=== PATIENT | female | born 1960 | race Caucasian/White ===

== ENCOUNTER 2020-03-17 23:10 | Emergency (ER) | payer MEDICARE, MEDICAID ==
[~2020-03-17] VITALS: Ht 165.1 cm; Wt 77.3 kg
[~2020-03-17 23:10] MED LIST: ACAM333T8 PO; ALEN70TA60 PO; BENZ1TAB7 PO; CLON-512 PO; FLUT1DIS7 IH; GABA-532 PO; HYDR-3964 PO; IBUP-1986 PO; LAMO100T PO; LAMO100T2 PO; LURA60TA PO; MIRT-116 PO; OLAN10TA19 PO; OMEP20CA15 PO; TIOT18CA7 IH; TRAM50TA2 PO; VILA40TA PO; ZOLP5TAB8 PO
[2020-03-17 23:12] VITALS: BP 119/77
--- NOTE | 2020-03-17 23:39 | NUR ---
PATIENT STATES HOME ADDRESS WHEN DISCHARGED WILL BE [facility]
== END 2020-03-18 01:38 | disposition home or self-care (01) ==
LOC: ER 23:10
DX: S09.90XA Unspecified injury of head, initial encounter (principal); F10.129 Alcohol abuse with intoxication, unspecified; J44.9 Chronic obstructive pulmonary disease, unspecified; G89.29 Other chronic pain; F32.9 Major depressive disorder, single episode, unspecified; F19.90 Other psychoactive substance use, unspecified, uncomplicated; Z87.01 Personal history of pneumonia (recurrent); Z72.89 Other problems related to lifestyle; Z88.0 Allergy status to penicillin; Z88.2 Allergy status to sulfonamides; Z88.5 Allergy status to narcotic agent; Z79.899 Other long term (current) drug therapy; Y90.9 Presence of alcohol in blood, level not specified
CPT/HCPCS: 70450; 70486; 72125; 99285

== ENCOUNTER 2020-03-18 02:31 | Emergency (ER) | payer MEDICARE, MEDICAID ==
[~2020-03-18] VITALS: Ht 165.1 cm; Wt 77.3 kg
[2020-03-18 03:04] VITALS: BP 134/83
[2020-03-18 03:19] LABS: BASOPHILS % (AUTO) 0.4 % (0-1); EOSINOPHILS % (AUTO) 0.1 % (0-6); HEMATOCRIT 39.6 % (35.0-45.0); HEMOGLOBIN 12.9 g/dl (12.0-16.0); LYMPHOCYTES # (AUTO) 1.5 X10'3 (1.1-4.8); LYMPHOCYTES % (AUTO) 22.4 % (21-51); MEAN CORPUSCULAR HEMOGLOBIN 31.4 PG (27.0-31.0); MEAN CORPUSCULAR HGB CONC 32.7 g/dL (33.0-36.5); MEAN CORPUSCULAR VOLUME 95.9 FL (78-98); MEAN PLATELET VOLUME 7.5 FL (7.4-10.4); MONOCYTES # (AUTO) 0.4 X10'3 (0-0.9); MONOCYTES % (AUTO) 6.5 % (2-12); NEUTROPHILS # (AUTO) 4.8 X10'3 (1.8-7.7); NEUTROPHILS % (AUTO) 70.6 % (42-75); PLATELET COUNT 305 X10'3 (140-440); RED BLOOD COUNT 4.13 X10'6 (4.20-5.60); RED CELL DISTRIBUTION WIDTH 13.4 % (11.5-14.5); WHITE BLOOD COUNT 6.8 X10'3 (4.5-11.0)
[2020-03-18 03:37] LABS: ALANINE AMINOTRANSFERASE 35 U/L (12-78); ALBUMIN 4.6 G/DL (3.4-5.0); ALBUMIN/GLOBULIN RATIO 1.4 (1.1-1.5); ALKALINE PHOSPHATASE 132 IU/L (46-116); ANION GAP 16 (8-16); ASPARTATE AMINO TRANSFERASE 42 U/L (10-37); BILIRUBIN,TOTAL 0.4 MG/DL (0.1-1.0); BLOOD UREA NITROGEN 8 MG/DL (7-18); BUN/CREATININE RATIO 12.3 (6.6-38.0); CALCIUM 9.3 MG/DL (8.5-10.1); CHLORIDE 102 MMOL/L (99-107); CREATININE 0.65 MG/DL (0.40-0.90); GLUCOSE 101 MG/DL (70-104); SODIUM 140 MMOL/L (135-145); TOTAL CARBON DIOXIDE 22.1 MMOL/L (24-32); TOTAL PROTEIN 7.9 G/DL (6.4-8.2); eGFR > 90 ML/MIN
[2020-03-18 03:45] LABS: ETHANOL 0.205 GM/DL (0.0-0.010)
[2020-03-18 04:26] LABS: CLARITY,URINE CLEAR (Clear); COLOR,URINE YELLOW (Yellow); GLUCOSE, URINE NEGATIVE (Neg); KETONES,URINE TRACE mg/dl (Neg); LEUKOCYTE ESTERASE ,URINE NEGATIVE (Neg); NITRITES, URINE NEGATIVE (Neg); OCCULT BLOOD,URINE NEGATIVE (Neg); PROTEIN,URINE NEGATIVE (Neg); UROBILINOGEN,URINE 0.2 E.U/dL (0.2-1.0)
[2020-03-18 04:27] LABS: UA COLLECTION TYPE CLN CATCH MIDSTREAM
[2020-03-18 04:38] LABS: URINE AMPHETAMINE SCREEN NEGATIVE (Neg); URINE BARBITUATE SCREEN NEGATIVE (Neg); URINE BENZODIAZEPINES SCREEN NEGATIVE (Neg); URINE CANNABINOID SCREEN NEGATIVE (Neg); URINE COCAINE SCREEN NEGATIVE (Neg); URINE METHADONE SCREEN NEGATIVE (Neg); URINE OPIATE SCREEN POSITIVE (Neg); URINE PHENCYCLIDINE SCREEN NEGATIVE (Neg)
--- NOTE | 2020-03-18 05:40 | NUR ---
PACKET SENT TO [facility]
--- NOTE | 2020-03-18 09:10 | NUR ---
pt standing next to bed no distress noted. asking for bed side commode. pt transferred self ro commode with no problem.
== END 2020-03-18 13:46 | disposition left against medical advice (07) ==
LOC: ER 02:31
DX: S82.831A Other fracture of upper and lower end of right fibula, initial encounter for closed fracture (principal); F10.129 Alcohol abuse with intoxication, unspecified; J44.9 Chronic obstructive pulmonary disease, unspecified; G89.29 Other chronic pain; F32.9 Major depressive disorder, single episode, unspecified; F19.90 Other psychoactive substance use, unspecified, uncomplicated; Z87.01 Personal history of pneumonia (recurrent); Z72.89 Other problems related to lifestyle; Z88.0 Allergy status to penicillin; Z88.2 Allergy status to sulfonamides; Z88.5 Allergy status to narcotic agent; Z79.899 Other long term (current) drug therapy; X58.XXXA Exposure to other specified factors, initial encounter; Y93.89 Activity, other specified; Y92.89 Other specified places as the place of occurrence of the external cause; Y99.8 Other external cause status; Y90.0 Blood alcohol level of less than 20 mg/100 ml
CPT/HCPCS: 36415; 73610; 80053; 80305; 80320; 81003; 84443; 85025; 99285

== ENCOUNTER 2021-02-23 15:30 | Inpatient (IN) | payer MEDICARE, MEDICAID ==
[2021-02-23] VITALS (7 sets, daily range): BP systolic 105–165; BP diastolic 55–85
[~2021-02-23] VITALS: Ht 165.1 cm; Wt 77.3 kg
[~2021-02-23 15:30] MED LIST changes: -CLON-512 PO; +CLON-567 PO; -OLAN10TA19 PO; +OLAN10TA73 PO
[2021-02-23 16:50] LABS: BASOPHILS % (AUTO) 0.3 % (0-1); EOSINOPHILS % (AUTO) 0.2 % (0-6); LYMPHOCYTES # (AUTO) 0.7 X10'3 (1.1-4.8); LYMPHOCYTES % (AUTO) 16.8 % (21-51); MEAN CORPUSCULAR HEMOGLOBIN 30.6 PG (27.0-31.0); MEAN CORPUSCULAR HGB CONC 32.2 g/dL (33.0-36.5); MEAN CORPUSCULAR VOLUME 94.9 FL (78-98); MEAN PLATELET VOLUME 8.4 FL (7.4-10.4); MONOCYTES # (AUTO) 0.4 X10'3 (0-0.9); MONOCYTES % (AUTO) 10.2 % (2-12); NEUTROPHILS % (AUTO) 72.5 % (42-75); PLATELET COUNT 251 X10'3 (140-440); RED BLOOD COUNT 1.57 X10'6 (4.20-5.60); RED CELL DISTRIBUTION WIDTH 16.9 % (11.5-14.5); WHITE BLOOD COUNT 4.2 X10'3 (4.5-11.0)
[2021-02-23 16:54] LABS: HEMATOCRIT 14.9 % (35.0-45.0); HEMOGLOBIN 4.8 g/dl (12.0-16.0)
[2021-02-23 17:04] LABS: ALANINE AMINOTRANSFERASE 20 U/L (12-78); ALBUMIN 2.8 G/DL (3.4-5.0); ALBUMIN/GLOBULIN RATIO 1.3 (1.1-1.5); ALKALINE PHOSPHATASE 72 IU/L (46-116); ANION GAP 11 (8-16); ASPARTATE AMINO TRANSFERASE 17 U/L (10-37); BILIRUBIN,TOTAL 0.2 MG/DL (0.1-1.0); BLOOD UREA NITROGEN 31 MG/DL (7-18); BUN/CREATININE RATIO 34.8 (6.6-38.0); CALCIUM 7.7 MG/DL (8.5-10.1); CHLORIDE 101 MMOL/L (99-107); CREATININE 0.89 MG/DL (0.40-0.90); GLUCOSE 195 MG/DL (70-104); POTASSIUM 4.9 MMOL/L (3.5-5.1); SODIUM 135 MMOL/L (135-145); TOTAL CARBON DIOXIDE 23.3 MMOL/L (24-32); TOTAL PROTEIN 4.9 G/DL (6.4-8.2); eGFR 64 ML/MIN
[2021-02-23 17:28] LABS: ETHANOL < 0.010 GM/DL (0.0-0.010)
[2021-02-23] MEDS ORDERED: pantoprazole 40MG/D5 100ML BAG 100 ML IV ONE (18:10)
[2021-02-23] MEDS ORDERED: magnesium 2GM in 50ml NS 50 ML IV PRN (20:30)
[2021-02-23] MEDS ORDERED: ondansetron/PF 4mg/2ml inj IV PRN (20:30)
[2021-02-23] MEDS ORDERED: magnesium hydroxide 30ml (MOM) UD suspension PO PRN (20:30)
[2021-02-23] MEDS ORDERED: mag hydrox/Alum hydrox/simeth 30ml oral suspension PO PRN (20:30)
[2021-02-23] MEDS ORDERED: acetaminophen 325mg tablet PO PRN (20:30)
[2021-02-23] MEDS ORDERED: magnesium 4gm in 100ml NS 100 ML IV PRN (20:30)
[2021-02-23] MEDS ORDERED: potassium CL 10mEq/100ml bag 100 ML IV PRN (20:30)
[2021-02-23] MEDS ORDERED: LORazepam 1 MG tablet PO PRN (20:45)
[2021-02-23 22:41] LABS: MAGNESIUM 2.3 MG/DL (1.5-2.4); POTASSIUM 4.5 MMOL/L (3.5-5.1)
[2021-02-23] MEDS ORDERED: FLUT1BLS3 PO (22:52)
[2021-02-23] MEDS ORDERED: CHLO100T24 PO (22:52)
[2021-02-23] MEDS ORDERED: HYDR-3972 PO (22:52)
[2021-02-23] MEDS ORDERED: TRAZ-251 PO (22:52)
[2021-02-23] MEDS ORDERED: AMLO5TAB16 PO (22:52)
[2021-02-23] MEDS ORDERED: ALBU18HF2 PO (22:52)
[2021-02-23] MEDS ORDERED: OMEP-50 PO (22:52)
[2021-02-23] MEDS ORDERED: DOXY100T30 PO (22:52)
[2021-02-23] MEDS ORDERED: GABA300C PO ×2 (22:52)
[2021-02-23] MEDS ORDERED: ALBUTEROL INHALER 1 PUFF/90 MCG INHALER IH PRN (23:30)
[2021-02-24 00:20] VITALS: BP 133/83
[2021-02-24] MEDS: normal saline 1000ml 1,000 ML IV SCH (00:28)
[2021-02-24 02:53] LABS: BASOPHILS % (AUTO) 0.3 % (0-1); EOSINOPHILS % (AUTO) 0.1 % (0-6); HEMOGLOBIN 8.3 g/dl (12.0-16.0); LYMPHOCYTES # (AUTO) 0.8 X10'3 (1.1-4.8); LYMPHOCYTES % (AUTO) 17.4 % (21-51); MEAN CORPUSCULAR HEMOGLOBIN 30.6 PG (27.0-31.0); MEAN CORPUSCULAR HGB CONC 34.4 g/dL (33.0-36.5); MEAN CORPUSCULAR VOLUME 88.9 FL (78-98); MEAN PLATELET VOLUME 8.7 FL (7.4-10.4); MONOCYTES # (AUTO) 0.5 X10'3 (0-0.9); MONOCYTES % (AUTO) 12.1 % (2-12); NEUTROPHILS # (AUTO) 3.1 X10'3 (1.8-7.7); NEUTROPHILS % (AUTO) 70.1 % (42-75); PLATELET COUNT 212 X10'3 (140-440); RED CELL DISTRIBUTION WIDTH 15.1 % (11.5-14.5); WHITE BLOOD COUNT 4.5 X10'3 (4.5-11.0)
[2021-02-24 03:04] LABS: ALANINE AMINOTRANSFERASE 22 U/L (12-78); ALBUMIN 2.9 G/DL (3.4-5.0); ALBUMIN/GLOBULIN RATIO 1.4 (1.1-1.5); ALKALINE PHOSPHATASE 66 IU/L (46-116); ANION GAP 5 (8-16); ASPARTATE AMINO TRANSFERASE 37 U/L (10-37); BILIRUBIN,TOTAL 0.4 MG/DL (0.1-1.0); BLOOD UREA NITROGEN 30 MG/DL (7-18); BUN/CREATININE RATIO 51.7 (6.6-38.0); CALCIUM 7.3 MG/DL (8.5-10.1); CHLORIDE 104 MMOL/L (99-107); CREATININE 0.58 MG/DL (0.40-0.90); GLUCOSE 120 MG/DL (70-104); POTASSIUM 4.1 MMOL/L (3.5-5.1); SODIUM 135 MMOL/L (135-145); eGFR > 90 ML/MIN
--- NOTE | 2021-02-24 03:05 | NUR ---
pt placed on hospital bed, new blankets given and call light in reach. no s/s of distress, no complaints
[2021-02-24 03:06] LABS: MAGNESIUM 2.2 MG/DL (1.5-2.4)
[2021-02-24] MEDS: LORazepam 2 mg/ml vial IV PRN ×2 (06:45→18:43)
[2021-02-24] MEDS: docusate sod 100mg capsule PO SCH ×2 (07:47→19:57)
[2021-02-24] MEDS: K and/or MAG REPLACEMENT MC SCH ×2 (07:47→19:53)
[2021-02-24] MEDS: Fluticasone/Vilanterol (Breo Ellipta 200-25 Mcg INH) PO SCH (08:00)
[2021-02-24] MEDS ORDERED: pantoprazole 40MG/NS 100ML BAG 100 ML IV SCH (08:00)
[2021-02-24] MEDS: gabapentin 300mg capsule PO SCH ×2 (08:10→13:00)
[2021-02-24] MEDS: thiamine 100mg tablet PO SCH (08:10)
--- NOTE | 2021-02-24 08:22 | NUR ---
medicated the pt with sip of water ,no nausea reported,pt has bm dark in color.
[2021-02-24 10:44] LABS: HEMOGLOBIN 8.5 g/dl (12.0-16.0); MEAN CORPUSCULAR HEMOGLOBIN 30.5 PG (27.0-31.0); MEAN CORPUSCULAR VOLUME 89.5 FL (78-98); PLATELET COUNT 227 X10'3 (140-440); RED BLOOD COUNT 2.79 X10'6 (4.20-5.60); RED CELL DISTRIBUTION WIDTH 15.6 % (11.5-14.5); WHITE BLOOD COUNT 4.8 X10'3 (4.5-11.0)
--- NOTE | 2021-02-24 13:27 | NUR ---
dr park at bedside.
--- NOTE | 2021-02-24 16:00 | NUR ---
sbar pt admission report assessment to hema morton ,pt is positive for covid had 2 black bm ,pt is still npo.on 2.5 l o2 which i disconnected as pt was 96-98 % on ra.pt is on etoh protocol and can use bedsidecommode with standby assistance.h/h is improven after 2 unit of bld .
[2021-02-24 16:51] LABS: HEMATOCRIT 22.7 % (35.0-45.0); HEMOGLOBIN 7.6 g/dl (12.0-16.0); MEAN CORPUSCULAR HEMOGLOBIN 30.2 PG (27.0-31.0); MEAN CORPUSCULAR HGB CONC 33.7 g/dL (33.0-36.5); MEAN CORPUSCULAR VOLUME 89.4 FL (78-98); MEAN PLATELET VOLUME 7.8 FL (7.4-10.4); PLATELET COUNT 221 X10'3 (140-440); RED BLOOD COUNT 2.54 X10'6 (4.20-5.60); RED CELL DISTRIBUTION WIDTH 15.6 % (11.5-14.5); WHITE BLOOD COUNT 3.6 X10'3 (4.5-11.0)
[2021-02-24 18:00] VITALS: BP 122/78
--- NOTE | 2021-02-24 18:26 | NUR ---
Patient in room ORTHO 4012. I have received report from DAYTON Gonzalez and had the opportunity to ask questions and assume patient care.
[2021-02-24] MEDS: HYDROcodone/acetaminophen 10/325mg tab PO PRN (18:44)
[2021-02-24] MEDS: pantoprazole 40MG/NS 100ML BAG 100 ML IV SCH (19:59)
[2021-02-24] MEDS: traZODone 50mg tablet PO PRN (20:53)
[2021-02-24 22:00] VITALS: BP 105/53
[2021-02-24 22:42] LABS: HEMOGLOBIN 7.1 g/dl (12.0-16.0); MEAN CORPUSCULAR HEMOGLOBIN 30.3 PG (27.0-31.0); MEAN CORPUSCULAR VOLUME 89.2 FL (78-98); MEAN PLATELET VOLUME 7.9 FL (7.4-10.4); PLATELET COUNT 222 X10'3 (140-440); RED BLOOD COUNT 2.35 X10'6 (4.20-5.60); RED CELL DISTRIBUTION WIDTH 15.6 % (11.5-14.5); WHITE BLOOD COUNT 3.7 X10'3 (4.5-11.0)
[2021-02-24 23:00] LABS: HEMATOCRIT 20.9 % (35.0-45.0)
[2021-02-25] VITALS (11 sets, daily range): BP systolic 103–144; BP diastolic 59–91
[2021-02-25] MEDS: LORazepam 2 mg/ml vial IV PRN ×2 (04:07→07:57)
[2021-02-25 04:42] LABS: ALANINE AMINOTRANSFERASE 21 U/L (12-78); ALBUMIN 2.5 G/DL (3.4-5.0); ALBUMIN/GLOBULIN RATIO 1.3 (1.1-1.5); ALKALINE PHOSPHATASE 61 IU/L (46-116); ANION GAP 6 (8-16); ASPARTATE AMINO TRANSFERASE 25 U/L (10-37); BILIRUBIN,TOTAL 0.5 MG/DL (0.1-1.0); BLOOD UREA NITROGEN 18 MG/DL (7-18); BUN/CREATININE RATIO 30.5 (6.6-38.0); CALCIUM 7.4 MG/DL (8.5-10.1); CHLORIDE 106 MMOL/L (99-107); CREATININE 0.59 MG/DL (0.40-0.90); GLUCOSE 94 MG/DL (70-104); MAGNESIUM 2.3 MG/DL (1.5-2.4); POTASSIUM 3.8 MMOL/L (3.5-5.1); SODIUM 137 MMOL/L (135-145); TOTAL CARBON DIOXIDE 24.7 MMOL/L (24-32); TOTAL PROTEIN 4.4 G/DL (6.4-8.2); eGFR > 90 ML/MIN
--- NOTE | 2021-02-25 06:29 | NUR ---
Problems reprioritized. Patient report given, questions answered & plan of care reviewed with DAYTON Haines.
[2021-02-25 07:01] LABS: BASOPHILS % (AUTO) 0.2 % (0-1); EOSINOPHILS % (AUTO) 0.5 % (0-6); HEMATOCRIT 23.3 % (35.0-45.0); HEMOGLOBIN 8.1 g/dl (12.0-16.0); LYMPHOCYTES # (AUTO) 0.9 X10'3 (1.1-4.8); LYMPHOCYTES % (AUTO) 26.5 % (21-51); MEAN CORPUSCULAR HEMOGLOBIN 30.9 PG (27.0-31.0); MEAN CORPUSCULAR HGB CONC 34.6 g/dL (33.0-36.5); MEAN CORPUSCULAR VOLUME 89.4 FL (78-98); MONOCYTES # (AUTO) 0.5 X10'3 (0-0.9); MONOCYTES % (AUTO) 14.4 % (2-12); NEUTROPHILS # (AUTO) 2.1 X10'3 (1.8-7.7); NEUTROPHILS % (AUTO) 58.4 % (42-75); PLATELET COUNT 216 X10'3 (140-440); RED BLOOD COUNT 2.61 X10'6 (4.20-5.60); WHITE BLOOD COUNT 3.6 X10'3 (4.5-11.0)
[2021-02-25] MEDS: thiamine 100mg tablet PO SCH (07:57)
[2021-02-25] MEDS: gabapentin 300mg capsule PO SCH ×2 (07:57→13:49)
[2021-02-25] MEDS: pantoprazole 40MG/NS 100ML BAG 100 ML IV SCH ×2 (07:57→19:57)
[2021-02-25] MEDS: docusate sod 100mg capsule PO SCH ×2 (07:57→19:57)
[2021-02-25] MEDS: Fluticasone/Vilanterol (Breo Ellipta 200-25 Mcg INH) PO SCH (08:00)
[2021-02-25] MEDS: K and/or MAG REPLACEMENT MC SCH ×2 (08:00→19:57)
[2021-02-25 16:08] LABS: HEMATOCRIT 26.1 % (35.0-45.0); HEMOGLOBIN 8.8 g/dl (12.0-16.0); MEAN CORPUSCULAR HEMOGLOBIN 30.8 PG (27.0-31.0); MEAN CORPUSCULAR HGB CONC 33.8 g/dL (33.0-36.5); MEAN PLATELET VOLUME 7.8 FL (7.4-10.4); PLATELET COUNT 241 X10'3 (140-440); RED BLOOD COUNT 2.87 X10'6 (4.20-5.60); RED CELL DISTRIBUTION WIDTH 15.6 % (11.5-14.5); WHITE BLOOD COUNT 3.5 X10'3 (4.5-11.0)
--- NOTE | 2021-02-25 18:19 | NUR ---
Patient in room ORTHO 4012. I have received report from DAYTON Haines and had the opportunity to ask questions and assume patient care.
--- NOTE | 2021-02-25 18:29 | NUR ---
Problems reprioritized. Patient report given, questions answered & plan of care reviewed with Elida BURRIS.
--- NOTE | 2021-02-25 18:40 | NUR ---
I was called in to room 4012B by the nurse thinking she was having a stroke because the patient had slurred speech and this was new per the nurse; Soheila. I called Dr. Torrez and he asked that I do a stroke alert and call the stroke nurse which I did. I also called lab to ask them why the ammonia was not drawn as ordered this afternoon. Lab is coming to draw her blood and we are taking patient to CT scan.
--- NOTE | 2021-02-25 18:53 | NUR ---
After I finished report I went to check on my pt. she sounds confused and slurred speech .I found her purse on the bed with her and inside in her purse was 4 prescriptions ,Charlotte,Trazodone,Advil PM and Doxycycline.I asked the pt. if she took any pills ,she told me she did not.I went and told my charged nurse ,she came and did the assessment and called .We are following all the orders and continue with pt. care.
[2021-02-25 19:34] LABS: ANION GAP 6 (8-16); BLOOD UREA NITROGEN 10 MG/DL (7-18); BUN/CREATININE RATIO 16.7 (6.6-38.0); CALCIUM 7.9 MG/DL (8.5-10.1); CHLORIDE 106 MMOL/L (99-107); GLUCOSE 105 MG/DL (70-104); POTASSIUM 3.9 MMOL/L (3.5-5.1); SODIUM 137 MMOL/L (135-145); TOTAL CARBON DIOXIDE 24.9 MMOL/L (24-32); eGFR > 90 ML/MIN
[2021-02-25 19:38] LABS: APTT 23 SECONDS (22-32)
[2021-02-25] MEDS: normal saline 1000ml 1,000 ML IV SCH (20:30)
[2021-02-25 22:28] LABS: HEMATOCRIT 28.3 % (35.0-45.0); HEMOGLOBIN 9.3 g/dl (12.0-16.0); MEAN CORPUSCULAR HEMOGLOBIN 30.5 PG (27.0-31.0); MEAN CORPUSCULAR VOLUME 92.5 FL (78-98); MEAN PLATELET VOLUME 8.7 FL (7.4-10.4); PLATELET COUNT 231 X10'3 (140-440); RED BLOOD COUNT 3.06 X10'6 (4.20-5.60); RED CELL DISTRIBUTION WIDTH 15.4 % (11.5-14.5); WHITE BLOOD COUNT 4.1 X10'3 (4.5-11.0)
[2021-02-26 02:00] VITALS: BP 126/76
[2021-02-26 06:00] VITALS: BP 125/73
--- NOTE | 2021-02-26 06:41 | NUR ---
Problems reprioritized. Patient report given, questions answered & plan of care reviewed with DAYTON Mercer.
[2021-02-26] MEDS ORDERED: metoprolol tartrate 1mg/ml inj IV ONE (07:00)
[2021-02-26 07:43] LABS: BASOPHILS % (AUTO) 0.6 % (0-1); HEMOGLOBIN 8.2 g/dl (12.0-16.0); LYMPHOCYTES # (AUTO) 0.8 X10'3 (1.1-4.8); LYMPHOCYTES % (AUTO) 25.9 % (21-51); MEAN CORPUSCULAR HEMOGLOBIN 30.9 PG (27.0-31.0); MEAN CORPUSCULAR HGB CONC 34.1 g/dL (33.0-36.5); MEAN CORPUSCULAR VOLUME 90.8 FL (78-98); MEAN PLATELET VOLUME 8.4 FL (7.4-10.4); MONOCYTES # (AUTO) 0.5 X10'3 (0-0.9); MONOCYTES % (AUTO) 15.1 % (2-12); NEUTROPHILS # (AUTO) 1.8 X10'3 (1.8-7.7); NEUTROPHILS % (AUTO) 57.4 % (42-75); PLATELET COUNT 236 X10'3 (140-440); RED BLOOD COUNT 2.64 X10'6 (4.20-5.60); RED CELL DISTRIBUTION WIDTH 16.2 % (11.5-14.5); WHITE BLOOD COUNT 3.1 X10'3 (4.5-11.0)
[2021-02-26] MEDS: K and/or MAG REPLACEMENT MC SCH ×2 (08:00→19:43)
[2021-02-26] MEDS: docusate sod 100mg capsule PO SCH ×2 (08:00→19:44)
[2021-02-26] MEDS: Fluticasone/Vilanterol (Breo Ellipta 200-25 Mcg INH) PO SCH (08:00)
[2021-02-26 08:04] LABS: ALANINE AMINOTRANSFERASE 21 U/L (12-78); ALBUMIN 2.6 G/DL (3.4-5.0); ALBUMIN/GLOBULIN RATIO 1.1 (1.1-1.5); ALKALINE PHOSPHATASE 62 IU/L (46-116); ANION GAP 7 (8-16); ASPARTATE AMINO TRANSFERASE 21 U/L (10-37); BILIRUBIN,TOTAL 0.3 MG/DL (0.1-1.0); BLOOD UREA NITROGEN 6 MG/DL (7-18); BUN/CREATININE RATIO 10.9 (6.6-38.0); CALCIUM 7.6 MG/DL (8.5-10.1); CHLORIDE 109 MMOL/L (99-107); CREATININE 0.55 MG/DL (0.40-0.90); GLUCOSE 100 MG/DL (70-104); MAGNESIUM 2.3 MG/DL (1.5-2.4); POTASSIUM 3.6 MMOL/L (3.5-5.1); SODIUM 140 MMOL/L (135-145); TOTAL CARBON DIOXIDE 24.3 MMOL/L (24-32); TOTAL PROTEIN 4.9 G/DL (6.4-8.2); eGFR > 90 ML/MIN
[2021-02-26 09:26] LABS: ANISOCYTOSIS 1+; PLATELET ESTIMATE NORMAL; POLYCHROMASIA FEW
[2021-02-26 10:00] VITALS: BP 119/79
[2021-02-26 10:27] LABS: HEMATOCRIT 27.1 % (35.0-45.0); HEMOGLOBIN 9.1 g/dl (12.0-16.0); MEAN CORPUSCULAR HEMOGLOBIN 30.7 PG (27.0-31.0); MEAN CORPUSCULAR HGB CONC 33.6 g/dL (33.0-36.5); MEAN CORPUSCULAR VOLUME 91.3 FL (78-98); MEAN PLATELET VOLUME 8.1 FL (7.4-10.4); PLATELET COUNT 264 X10'3 (140-440); RED BLOOD COUNT 2.97 X10'6 (4.20-5.60); RED CELL DISTRIBUTION WIDTH 15.7 % (11.5-14.5); WHITE BLOOD COUNT 4.5 X10'3 (4.5-11.0)
[2021-02-26] MEDS: HYDROcodone/acetaminophen 10/325mg tab PO PRN ×2 (10:32→17:58)
[2021-02-26] MEDS: pantoprazole 40MG/NS 100ML BAG 100 ML IV SCH ×2 (10:32→19:45)
[2021-02-26] MEDS: thiamine 100mg tablet PO SCH (10:32)
[2021-02-26] MEDS: gabapentin 300mg capsule PO SCH ×2 (10:33→13:12)
--- NOTE | 2021-02-26 11:16 | NUR ---
Clarified with hospitalist endoscopy is on Sunday. Pt. needs to be NPO after
[2021-02-26 14:00] VITALS: BP 142/73
--- NOTE | 2021-02-26 17:04 | NUR ---
Attempted to call back family member Heaven Morales . Phone apparently not working.
--- NOTE | 2021-02-26 17:06 | NUR ---
Family called back. Spoke to her and updated pt.
[2021-02-26 18:00] VITALS: BP 152/77
--- NOTE | 2021-02-26 18:30 | NUR ---
Patient in room ORTHO 4012. I have received report from DAYTON Mercer and had the opportunity to ask questions and assume patient care.
--- NOTE | 2021-02-26 18:52 | NUR ---
Report given to Soheila BURRIS.
[2021-02-26] MEDS: traZODone 50mg tablet PO PRN (20:39)
[2021-02-27] VITALS (15 sets, daily range): BP systolic 119–165; BP diastolic 53–109
--- NOTE | 2021-02-27 06:42 | NUR ---
Problems reprioritized. Patient report given, questions answered & plan of care reviewed with DAYTON Rossi.
--- NOTE | 2021-02-27 06:48 | NUR ---
Patient in room ORTHO 4012B. I have received report from DAYTON Parnell and had the opportunity to ask questions and assume patient care.
[2021-02-27] MEDS ORDERED: MIDAZolam 1 MG/ML 5ML VIAL ONE (06:49)
[2021-02-27] MEDS ORDERED: fentaNYL/PF 50MCG/1 ML 2ML syringe ONE (06:49)
[2021-02-27] MEDS ORDERED: diphenhydrAMINE 50 mg/ml inj ONE (06:49)
[2021-02-27 06:53] LABS: BASOPHILS % (AUTO) 0.2 % (0-1); EOSINOPHILS % (AUTO) 0.6 % (0-6); HEMATOCRIT 26.3 % (35.0-45.0); HEMOGLOBIN 8.8 g/dl (12.0-16.0); LYMPHOCYTES # (AUTO) 0.7 X10'3 (1.1-4.8); LYMPHOCYTES % (AUTO) 15.5 % (21-51); MEAN CORPUSCULAR HEMOGLOBIN 30.5 PG (27.0-31.0); MEAN CORPUSCULAR HGB CONC 33.5 g/dL (33.0-36.5); MEAN CORPUSCULAR VOLUME 91.2 FL (78-98); MEAN PLATELET VOLUME 8.4 FL (7.4-10.4); MONOCYTES # (AUTO) 0.5 X10'3 (0-0.9); MONOCYTES % (AUTO) 10.9 % (2-12); NEUTROPHILS # (AUTO) 3.1 X10'3 (1.8-7.7); NEUTROPHILS % (AUTO) 72.8 % (42-75); PLATELET COUNT 281 X10'3 (140-440); RED BLOOD COUNT 2.89 X10'6 (4.20-5.60); RED CELL DISTRIBUTION WIDTH 15.8 % (11.5-14.5); WHITE BLOOD COUNT 4.2 X10'3 (4.5-11.0)
[2021-02-27 07:04] LABS: ALANINE AMINOTRANSFERASE 27 U/L (12-78); ALBUMIN 2.8 G/DL (3.4-5.0); ALBUMIN/GLOBULIN RATIO 1.2 (1.1-1.5); ALKALINE PHOSPHATASE 73 IU/L (46-116); ANION GAP 9 (8-16); ASPARTATE AMINO TRANSFERASE 23 U/L (10-37); BILIRUBIN,TOTAL 0.3 MG/DL (0.1-1.0); BLOOD UREA NITROGEN 3 MG/DL (7-18); BUN/CREATININE RATIO 4.8 (6.6-38.0); CALCIUM 8.2 MG/DL (8.5-10.1); CHLORIDE 109 MMOL/L (99-107); CREATININE 0.62 MG/DL (0.40-0.90); GLUCOSE 103 MG/DL (70-104); MAGNESIUM 2.1 MG/DL (1.5-2.4); POTASSIUM 3.7 MMOL/L (3.5-5.1); SODIUM 141 MMOL/L (135-145); TOTAL CARBON DIOXIDE 23.2 MMOL/L (24-32); TOTAL PROTEIN 5.1 G/DL (6.4-8.2); eGFR > 90 ML/MIN
--- NOTE | 2021-02-27 07:19 | NUR ---
pt left floor for EGD at 0715
[2021-02-27] MEDS: Fluticasone/Vilanterol (Breo Ellipta 200-25 Mcg INH) PO SCH (08:00)
[2021-02-27] MEDS: K and/or MAG REPLACEMENT MC SCH ×2 (08:00→19:42)
--- NOTE | 2021-02-27 08:55 | NUR ---
Initial: Pt admitted w/ Covid and melena possibly secondary to alcoholic gastritis per EMR. Pt currently NPO to go for EGD today per documentation, previously on Clear liquid diet w/ mostly 100% intake of meals not meeting needs. Recommend advancing to Regular diet as medically indicated. LBM 02/26. Limited nutrition interventions at this time, will continue to monitor. Recs: 1. Advance to Regular diet as medically indicated 2. Monitor need for ONS 3. Bowel care per rx 4. Scaled wts Addendum: 02/27/21 at [address] Amended: Links added.
[2021-02-27] MEDS: pantoprazole 40MG/NS 100ML BAG 100 ML IV SCH ×2 (09:26→20:17)
[2021-02-27] MEDS: thiamine 100mg tablet PO SCH (09:27)
[2021-02-27] MEDS: gabapentin 300mg capsule PO SCH ×2 (09:27→12:34)
[2021-02-27] MEDS: docusate sod 100mg capsule PO SCH ×2 (09:34→20:00)
--- NOTE | 2021-02-27 09:50 | NUR ---
pt arrived back on floor at 0915
[2021-02-27] MEDS: fluconazole 100mg tablet PO SCH (12:34)
--- NOTE | 2021-02-27 18:27 | NUR ---
Problems reprioritized. Patient report given, questions answered & plan of care reviewed with DAYTON Salazar.
[2021-02-27] MEDS: traZODone 50mg tablet PO PRN (20:17)
[2021-02-27] MEDS: normal saline 1000ml 1,000 ML IV SCH (20:18)
[2021-02-28 02:00] VITALS: BP 119/68
[2021-02-28 06:00] VITALS: BP 142/76
[2021-02-28 07:12] LABS: BASOPHILS % (AUTO) 0.3 % (0-1); EOSINOPHILS % (AUTO) 0.3 % (0-6); HEMATOCRIT 27.2 % (35.0-45.0); HEMOGLOBIN 9.2 g/dl (12.0-16.0); LYMPHOCYTES # (AUTO) 0.9 X10'3 (1.1-4.8); LYMPHOCYTES % (AUTO) 20.5 % (21-51); MEAN CORPUSCULAR HEMOGLOBIN 30.9 PG (27.0-31.0); MEAN CORPUSCULAR HGB CONC 33.9 g/dL (33.0-36.5); MEAN CORPUSCULAR VOLUME 91.1 FL (78-98); MEAN PLATELET VOLUME 8.3 FL (7.4-10.4); MONOCYTES # (AUTO) 0.5 X10'3 (0-0.9); MONOCYTES % (AUTO) 11.3 % (2-12); NEUTROPHILS # (AUTO) 2.9 X10'3 (1.8-7.7); NEUTROPHILS % (AUTO) 67.6 % (42-75); PLATELET COUNT 345 X10'3 (140-440); RED BLOOD COUNT 2.98 X10'6 (4.20-5.60); WHITE BLOOD COUNT 4.2 X10'3 (4.5-11.0)
[2021-02-28 07:19] LABS: ALANINE AMINOTRANSFERASE 28 U/L (12-78); ALBUMIN 3.1 G/DL (3.4-5.0); ALBUMIN/GLOBULIN RATIO 1.1 (1.1-1.5); ALKALINE PHOSPHATASE 83 IU/L (46-116); ANION GAP 7 (8-16); ASPARTATE AMINO TRANSFERASE 16 U/L (10-37); BILIRUBIN,TOTAL 0.3 MG/DL (0.1-1.0); BLOOD UREA NITROGEN 3 MG/DL (7-18); BUN/CREATININE RATIO 4.5 (6.6-38.0); CALCIUM 8.4 MG/DL (8.5-10.1); CHLORIDE 108 MMOL/L (99-107); CREATININE 0.66 MG/DL (0.40-0.90); GLUCOSE 112 MG/DL (70-104); POTASSIUM 3.4 MMOL/L (3.5-5.1); SODIUM 140 MMOL/L (135-145); TOTAL CARBON DIOXIDE 25.4 MMOL/L (24-32); TOTAL PROTEIN 5.8 G/DL (6.4-8.2); eGFR > 90 ML/MIN
[2021-02-28] MEDS: Fluticasone/Vilanterol (Breo Ellipta 200-25 Mcg INH) PO SCH (08:00)
[2021-02-28] MEDS: pantoprazole 40MG/NS 100ML BAG 100 ML IV SCH (08:25)
[2021-02-28] MEDS: thiamine 100mg tablet PO SCH (08:25)
[2021-02-28] MEDS: docusate sod 100mg capsule PO SCH (08:25)
[2021-02-28] MEDS: gabapentin 300mg capsule PO SCH (08:25)
[2021-02-28] MEDS: K and/or MAG REPLACEMENT MC SCH (08:56)
[2021-02-28] MEDS ORDERED: magnesium Cl slow-release 64mg tablet PO PRN (09:05)
[2021-02-28] MEDS ORDERED: magnesium 2GM in 50ml NS 50 ML IV PRN (09:05)
[2021-02-28] MEDS ORDERED: potassium CL 10mEq/100ml bag 100 ML IV PRN (09:05)
[2021-02-28] MEDS ORDERED: magnesium 4gm in 100ml NS 100 ML IV PRN (09:05)
[2021-02-28] MEDS ORDERED: potassium Cl 20 mEq SR tablet PO PRN ×2 (09:05)
[2021-02-28 09:18] LABS: MAGNESIUM 2.1 MG/DL (1.5-2.4)
[2021-02-28] MEDS ORDERED: potassium Cl 20 mEq SR tablet PO ONE (10:25)
[2021-02-28] MEDS ORDERED: FOLI0.4T6 PO (10:38)
[2021-02-28] MEDS ORDERED: PANT-47 PO (10:38)
[2021-02-28] MEDS ORDERED: thiamine tablet PO (10:38)
[2021-02-28] MEDS ORDERED: FLUC100T9 PO (10:38)
[2021-02-28] MEDS: fluconazole 100mg tablet PO SCH (10:59)
[2021-02-28] MEDS: HYDROcodone/acetaminophen 10/325mg tab PO PRN (11:01)
--- NOTE | 2021-02-28 13:15 | NUR ---
Discharge instructions given to patient. All questions answered. Pt states she understands all instructions. Gave pt back her home medications from the pharmacy to take home. Discontinued IVL. Pt's ride is on their way and will bring clothes for her to change into before she leaves.
--- NOTE | 2021-02-28 14:34 | NUR ---
pt discharged from unit via wheelchair. All belongings accompanied pt including her home medications that we had stored in our pharmacy. pt is leaving by private care.
[2021-02-28] MEDS ORDERED: K and/or MAG REPLACEMENT MC SCH (20:00)
== END 2021-02-28 14:30 | disposition home or self-care (01) | DRG 377 ==
LOC: ER 15:31 → ED HOLD 20:33 → ORTHO 4S 02-24 17:00
PROVIDERS: ADMIT Internal Medicine; ATTEND Family Medicine
PROC: 30233N1 Transfusion of Nonautologous Red Blood Cells into Peripheral Vein, Percutaneous Approach (ICD-10-PCS; 2021-02-23)
PROC: 0DB98ZX Excision of Duodenum, Via Natural or Artificial Opening Endoscopic, Diagnostic (ICD-10-PCS; principal; 2021-02-27)
PROC: 0DB68ZX Excision of Stomach, Via Natural or Artificial Opening Endoscopic, Diagnostic (ICD-10-PCS; 2021-02-27)
PROC: 0DB58ZX Excision of Esophagus, Via Natural or Artificial Opening Endoscopic, Diagnostic (ICD-10-PCS; 2021-02-27)
DX: K25.4 Chronic or unspecified gastric ulcer with hemorrhage (principal); U07.1 COVID-19; B37.81 Candidal esophagitis; D62 Acute posthemorrhagic anemia; G93.40 Encephalopathy, unspecified; G30.9 Alzheimer's disease, unspecified; K29.21 Alcoholic gastritis with bleeding; J44.9 Chronic obstructive pulmonary disease, unspecified; F10.20 Alcohol dependence, uncomplicated; F32.A Depression, unspecified; M54.9 Dorsalgia, unspecified; G89.4 Chronic pain syndrome; Z78.9 Other specified health status; Z82.49 Family history of ischemic heart disease and other diseases of the circulatory system; Z82.5 Family history of asthma and other chronic lower respiratory diseases; Z87.891 Personal history of nicotine dependence; Z99.81 Dependence on supplemental oxygen; Z88.0 Allergy status to penicillin; Z88.2 Allergy status to sulfonamides; Z88.5 Allergy status to narcotic agent; Z82.3 Family history of stroke; Z79.899 Other long term (current) drug therapy
CPT/HCPCS: 36415; 36430; 43239; 70450; 71045; 80048; 80053; 80320; 82140; 82948; 83735; 83880; 84132; 84484; 85008; 85025; 85027; 85610; 85730; 86885; 86900; 86901; 86920; 87081; 87635; 88305; 88312; 99152; 99291; A4620; C9113; G0378; J1200; J2060; J2250; J3010; J7030; J7040; P9016

== ENCOUNTER 2021-10-23 08:25 | Emergency (ER) | payer MEDICARE, MEDICAID ==
[~2021-10-23] VITALS: Ht 163.8 cm; Wt 148.0 kg
[~2021-10-23 08:25] MED LIST changes: -ACAM333T8 PO; +ALBU18HF2 PO; -ALEN70TA60 PO; +AMLO5TAB16 PO; -BENZ1TAB7 PO; +CHLO100T36 PO; -CLON-567 PO; +FLUC100T64 PO; +FLUT1BLS3 PO; -FLUT1DIS7 IH; -GABA-532 PO; +GABA300C PO; -HYDR-3964 PO; +HYDR-3972 PO; -IBUP-1986 PO; -LAMO100T PO; -LAMO100T2 PO; -LURA60TA PO; -MIRT-116 PO; -OLAN10TA73 PO; -OMEP20CA15 PO; +PANT-47 PO; -TIOT18CA7 IH; -TRAM50TA2 PO; +TRAZ-251 PO; -VILA40TA PO; -ZOLP5TAB8 PO; +thiamine tablet PO
[2021-10-23 10:12] LABS: CLARITY,URINE SLIGHTLY CLOUDY (Clear); COLOR,URINE YELLOW (Yellow); GLUCOSE, URINE NEGATIVE (Neg); KETONES,URINE NEGATIVE (Neg); LEUKOCYTE ESTERASE ,URINE SMALL (Neg); NITRITES, URINE NEGATIVE (Neg); OCCULT BLOOD,URINE NEGATIVE (Neg); PROTEIN,URINE NEGATIVE (Neg); UROBILINOGEN,URINE 0.2 E.U/dL (0.2-1.0)
--- NOTE | 2021-10-23 10:15 | NUR ---
Patient assissted to [facility], unsteady on feet. Able to void, ua speciment sent to lab. Back to bedresting quietly.
[2021-10-23 10:22] LABS: UA COLLECTION TYPE VOIDED
[2021-10-23 10:23] LABS: APTT 34 SECONDS (22-32); BASOPHILS % (AUTO) 0.9 % (0-1); EOSINOPHILS # (AUTO) 0.1 X10'3 (0-0.9); EOSINOPHILS % (AUTO) 2.6 % (0-6); HEMATOCRIT 36.2 % (35.0-45.0); HEMOGLOBIN 12.2 g/dl (12.0-16.0); LYMPHOCYTES # (AUTO) 0.9 X10'3 (1.1-4.8); LYMPHOCYTES % (AUTO) 18.6 % (21-51); MEAN CORPUSCULAR HEMOGLOBIN 29.8 PG (27.0-31.0); MEAN CORPUSCULAR HGB CONC 33.6 g/dL (33.0-36.5); MEAN CORPUSCULAR VOLUME 88.9 FL (78-98); MEAN PLATELET VOLUME 8.2 FL (7.4-10.4); MONOCYTES # (AUTO) 0.5 X10'3 (0-0.9); MONOCYTES % (AUTO) 9.6 % (2-12); NEUTROPHILS # (AUTO) 3.4 X10'3 (1.8-7.7); NEUTROPHILS % (AUTO) 68.3 % (42-75); PLATELET COUNT 334 X10'3 (140-440); RED BLOOD COUNT 4.08 X10'6 (4.20-5.60); RED CELL DISTRIBUTION WIDTH 13.3 % (11.5-14.5)
[2021-10-23 10:24] LABS: SQUAMOUS EPITHELIAL CELL,UR MANY /LPF (FEW)
[2021-10-23 10:26] LABS: TRANSITIONAL EPI CELLS,URINE FEW /HPF
[2021-10-23 10:27] LABS: BACTERIA,URINE FEW /HPF (Neg); RBC,URINE NONE SEEN /HPF (0-2)
[2021-10-23 10:32] LABS: ALANINE AMINOTRANSFERASE 20 U/L (12-78); ALBUMIN 4.3 G/DL (3.4-5.0); ALBUMIN/GLOBULIN RATIO 1.6 (1.1-1.5); ALKALINE PHOSPHATASE 78 IU/L (46-116); ANION GAP 10 (8-16); ASPARTATE AMINO TRANSFERASE 13 U/L (10-37); BILIRUBIN,TOTAL 0.2 MG/DL (0.1-1.0); BLOOD UREA NITROGEN 11 MG/DL (7-18); BUN/CREATININE RATIO 11.3 (6.6-38.0); CALCIUM 9.1 MG/DL (8.5-10.1); CHLORIDE 97 MMOL/L (99-107); CREATININE 0.97 MG/DL (0.40-0.90); GLUCOSE 109 MG/DL (70-104); POTASSIUM 3.6 MMOL/L (3.5-5.1); SODIUM 133 MMOL/L (135-145); eGFR 58 ML/MIN
[2021-10-23 10:32] LABS: URINE AMPHETAMINE SCREEN NEGATIVE (Neg); URINE BARBITUATE SCREEN NEGATIVE (Neg); URINE BENZODIAZEPINES SCREEN NEGATIVE (Neg); URINE CANNABINOID SCREEN NEGATIVE (Neg); URINE COCAINE SCREEN NEGATIVE (Neg); URINE METHADONE SCREEN NEGATIVE (Neg); URINE OPIATE SCREEN POSITIVE (Neg); URINE PHENCYCLIDINE SCREEN NEGATIVE (Neg)
[2021-10-23 10:38] LABS: ETHANOL < 0.010 GM/DL (0.0-0.010)
[2021-10-23 13:07] VITALS: BP 129/70
== END 2021-10-23 12:55 | disposition home or self-care (01) ==
LOC: ER 08:25
DX: R53.1 Weakness (principal); M54.89 Other dorsalgia; J44.9 Chronic obstructive pulmonary disease, unspecified; I10 Essential (primary) hypertension; G89.29 Other chronic pain; F32.A Depression, unspecified; F17.200 Nicotine dependence, unspecified, uncomplicated; Z86.69 Personal history of other diseases of the nervous system and sense organs; Z87.01 Personal history of pneumonia (recurrent); Z72.89 Other problems related to lifestyle; Z88.0 Allergy status to penicillin; Z88.5 Allergy status to narcotic agent; Z88.2 Allergy status to sulfonamides; Z79.2 Long term (current) use of antibiotics; Z79.899 Other long term (current) drug therapy
CPT/HCPCS: 36415; 71045; 80053; 80305; 80320; 81001; 83735; 83880; 84443; 84484; 85025; 85610; 85730; 93005; 99285